=== PATIENT | female | born 1995 | race Caucasian/White ===

== ENCOUNTER 2017-08-21 00:51 | Emergency (ER) | payer SELFPAY ==
[~2017-08-21] VITALS: Ht 165.1 cm; Wt 72.7 kg
[2017-08-21 01:04] VITALS: BP 149/83
[2017-08-21] MEDS ORDERED: AMOXICILLIN 50500 MG PO (02:08)
== END 2017-08-21 02:19 | disposition home or self-care (01) ==
LOC: ED 00:51
DX: K05.219 Aggressive periodontitis, localized, unspecified severity (principal); K08.89 Other specified disorders of teeth and supporting structures; F17.200 Nicotine dependence, unspecified, uncomplicated

== ENCOUNTER 2017-10-02 20:22 | Emergency (ER) | payer SELFPAY ==
[~2017-10-02] VITALS: Ht 167.6 cm; Wt 72.7 kg
[~2017-10-02 20:22] MED LIST: AMOXICILLIN 50500 MG PO
[2017-10-02 23:19] LABS: EOS # 0.1 (0.04-0.40); EOS % 1.1 % (1.0-5.0); HEMATOCRIT 42.3 % (37.0-47.0); HEMOGLOBIN 14.3 g/dL (12.5-16.0); LYMPH# 1.8 (1.50-4.00); MEAN CELL VOLUME 86 fl (78-100); MEAN CORPUSCULAR HEMOGLOBIN 29 pg (27-31); MEAN CORPUSCULAR HGB CONC 34 g/dL (33-37); MEAN PLATELET VOLUME 9.5 fl (7.4-10.4); MONO # 0.7 (0.20-0.80); NEU # 8.8 (1.40-6.50); PLATELET COUNT 246 K/mm3 (130-400); RED BLOOD COUNT 4.95 M/mm3 (4.10-5.30); WHITE BLOOD COUNT 11.5 K/mm3 (4.8-10.8)
[2017-10-02 23:32] LABS: ALBUMIN 4.3 g/dL (3.5-5.0); CALCIUM 9.4 mg/dL (8.4-10.2); POTASSIUM 3.4 mmol/L (3.6-5.0); TOTAL PROTEIN 7.6 g/dL (6.3-8.2)
[2017-10-02 23:36] LABS: PH-URINE 5.5 (5.0 - 8.0); URINE APPEARANCE HAZY; URINE COLOR YELLOW
[2017-10-02 23:37] LABS: URINE BILIRUBIN NEGATIVE (NEGATIVE); URINE BLOOD NEGATIVE (NEGATIVE); URINE GLUCOSE NEGATIVE (NEGATIVE); URINE KETONE NEGATIVE (NEGATIVE); URINE LEUKOCYTE ESTERASE TRACE (NEGATIVE); URINE NITRATE NEGATIVE (NEGATIVE); URINE PROTEIN(semi-quant) TRACE mg/dL (NEGATIVE); URINE UROBILINOGEN NORMAL (NORMAL)
[2017-10-03] MEDS ORDERED: HYOSCYAMINE0.125 M7 PO (00:23)
[2017-10-03] MEDS ORDERED: BENTYL10 M1 PO (00:23)
[2017-10-03 03:35] VITALS: BP 120/68
== END 2017-10-03 03:35 ==
LOC: ED 20:22
PROVIDERS: Family Medicine
DX: R45.851 Suicidal ideations (principal); F32.9 Major depressive disorder, single episode, unspecified; N39.0 Urinary tract infection, site not specified; F43.10 Post-traumatic stress disorder, unspecified; F17.200 Nicotine dependence, unspecified, uncomplicated; K08.89 Other specified disorders of teeth and supporting structures

== ENCOUNTER 2017-11-25 20:31 | Emergency (ER) | payer SELFPAY ==
[~2017-11-25] VITALS: Ht 167.6 cm; Wt 86.7 kg
[~2017-11-25 20:31] MED LIST changes: +BENTYL10 M1 PO; +HYOSCYAMINE0.125 M7 PO
[2017-11-26 00:24] VITALS: BP 138/66
== END 2017-11-26 00:24 | disposition home or self-care (01) ==
LOC: ED 20:31
DX: S60.221A Contusion of right hand, initial encounter (principal); W22.03XA Walked into furniture, initial encounter; Y92.009 Unspecified place in unspecified non-institutional (private) residence as the place of occurrence of the external cause; F17.200 Nicotine dependence, unspecified, uncomplicated; Z88.8 Allergy status to other drugs, medicaments and biological substances

== ENCOUNTER 2017-11-30 22:41 | Emergency (ER) | payer SELFPAY ==
[~2017-11-30] VITALS: Ht 167.6 cm; Wt 81.8 kg
[2017-11-30] MEDS ORDERED: PROZAC20 M1 PO (22:50)
[2017-11-30 23:55] VITALS: BP 140/59
== END 2017-11-30 23:55 | disposition home or self-care (01) ==
LOC: ED 22:41
DX: M94.0 Chondrocostal junction syndrome [Tietze] (principal); F32.9 Major depressive disorder, single episode, unspecified; F41.1 Generalized anxiety disorder; F17.210 Nicotine dependence, cigarettes, uncomplicated; Z88.8 Allergy status to other drugs, medicaments and biological substances